=== PATIENT | female | born 1990 | race American Indian/Alaskan Native ===

== ENCOUNTER 2017-09-04 12:18 | Emergency (ER) | payer BC, MEDICAID, OTHER ==
[2017-09-04 12:18] VITALS: BMI 28.1
[2017-09-04 12:26] VITALS: BP 112/76; PULSE 71; RESP 16; TEMP 98; O2SAT 100
--- NOTE | 2017-09-04 12:48 | ED PDOC ---
Lower Extremity Pain/Injury Time Seen by Provider: 09/04/17 12:30 Chief Complaint (Nursing): Lower Extremity Problem/Injury Chief Complaint (Provider): Right foot pain History Per: Patient History/Exam Limitations: no limitations Onset/Duration Of Symptoms: Days (x1 week) Current Symptoms Are (Timing): Still Present Additional Complaint(s): 26 year old female presents to the emergency department with a complaint of a right foot pain x1 week. Patient describes pain like pins and needles and burning sensation to toes. Reports she has had history of severe hughes bite in the pain but denies any recent exposure to severe cold or trauma. States she saw her avionics electronics technician, Dr. Mando Darden MD yesterday, who gave her a referral for a nerve test which she has scheduled for September 10, 2017 but decided to come to the emergency department today because pain was constant while working today. [employer] did not prescribe her any pain medications and reports that Advil and Tylenol are not helping. Past Medical History Reviewed: Historical Data, Nursing Documentation, Vital Signs Vital Signs: Last Vital Signs Temp 98.0 F 09/04/17 12:22 Pulse 71 09/04/17 12:22 Resp 16 09/04/17 12:22 BP 112/76 09/04/17 12:22 Pulse Ox 100 09/04/17 12:22 - Medical History PMH: Migraine - Surgical History Surgical History: No Surg Hx - Family History Family History: States: No Known Family Hx - Living Arrangements Living Arrangements: With Family - Social History Current smoker - smoking cessation education provided: No Alcohol: None Drugs: Denies - Home Medications Home Medications: Ambulatory Orders Medication Instructions Recorded Naproxen 500 mg PO BID PRN #24 tab 05/20/17 Acetaminophen with Codeine 1 tab PO Q6 PRN #20 tab 09/04/17 [Tylenol with Codeine No. 3 300 mg-30 mg] - Allergies Allergies/Adverse Reactions: Allergies Allergy/AdvReac Type Severity Reaction Status Date / Time No Known Allergies Allergy Verified 09/04/17 12:22 Wells Criteria for PE - Wells Criteria for Pulmonary Embolism Clinical Signs and Symptoms of DVT: No P.E is #1 Diagnosis, or Equally Likely: No Heart Rate >100: No Immobilization at least 3 days;Surgery previous 4 weeks: No Previous, objectively diagnosed PE or DVT: No Hemoptysis: No Malignancy w/treatment within 6 months, or palliative: No Total Score: 0 Review of Systems ROS Statement: Except As Marked, All Systems Reviewed And Found Negative (As per HPI, otherwise negative) Constitutional: Negative for: Fever, Chills Musculoskeletal: Positive for: Foot Pain (Right) Physical Exam - Reviewed Nursing Documentation Reviewed: Yes Vital Signs Reviewed: Yes - Physical Exam Appears: Positive for: Well, Non-toxic, No Acute Distress Skin: Positive for: Normal Color. Negative for: Rash Eye Exam: Positive for: Normal appearance Extremity: Positive for: Normal ROM, Tenderness (tenderness to distal aspect of toes to the right foot with no swelling or abnormal discoloration). Negative for: Pedal Edema, Calf Tenderness, Deformity, Swelling Neurologic/Psych: Positive for: Alert, Oriented (x3) - Laboratory Results Urine POC: Negative - ECG O2 Sat by Pulse Oximetry: 100 (RA) Pulse Ox Interpretation: Normal - Other Rad Right foot x-ray X-Ray: Interpreted by Me, Viewed By Me X-Ray Interpretation: no fx, no dis Medical Decision Making Medical Decision Making: Time: 1239 Initial Impression: Right foot pain Initial Plan: --Urine Preg --Right foot x-ray --Podiatry consult ordered --Reevaluation Podiatry resident, Dr. Brian at bedside to see patient. As per Dr. Brian and podiatry attending Dr. Darden, patient can be discharged with a 5 day supply of Tylenol with Codeine. She was instructed to follow-up with pain management as directed. Patient given 1 tablet of T3 in ED. Scribe Attestation: Documented by Imani Castaneda, acting as a scribe for Saira Tejada PA-C. Provider Scribe Attestation: All medical record entries made by the Scribe were at my direction and personally dictated by me. I have reviewed the chart and agree that the record accurately reflects my personal performance of the history, physical exam, medical decision making, and the department course for this patient. I have also personally directed, reviewed, and agree with the discharge instructions and disposition. Disposition - Clinical Impression Clinical Impression: Right foot pain - Patient ED Disposition Is Patient to be Admitted: No Counseled Patient/Family Regarding: Studies Performed, Diagnosis, Need For Followup, Rx Given - Disposition Referrals: Boris,Mando B, DPM [Family Provider] - Disposition: Routine/Home Disposition Time: 13:40 Condition: STABLE Additional Instructions: Take prescription meds as directed as needed for pain. Follow up as directed by Dr. Moncada. Prescriptions: Acetaminophen with Codeine [Tylenol with Codeine No. 3 300 mg-30 mg] 1 tab PO Q6 PRN #20 tab PRN Reason: Pain Instructions: Muscle and Bone Pain (DC), Foot Sprain (DC) Forms: [employer] (Croatian), [facility] ED School/Work Excuse
[2017-09-04] MEDS ORDERED: Acetaminophen-Codeine 300/30 mg Tab PO STA (13:30)
[2017-09-04] MEDS ORDERED: Acetaminophen-Codeine 300/30 mg Tab ONE (13:42)
--- NOTE | 2017-09-04 16:44 | RAD ---
PROCEDURE: Right Foot Radiographs. HISTORY: Pain. No history of recent/ related trauma provided COMPARISON: None. FINDINGS: BONES: Normal. No fracture. JOINTS: Normal. SOFT TISSUES: Normal. OTHER FINDINGS: None. IMPRESSION: Normal right foot radiographs. Concordant results with the preliminary interpretation rendered by the emergency department physician procedure.
--- NOTE | 2017-09-04 16:46 | CP.PCM.CON ---
History of Present Illness - History of Present Illness History of Present Illness: 26F seen in ED complaining of pain to her right foot. Patient states that over the winter she had severe frostbite to the same foot and has been following up with Dr. Moncada in [facility] wound care center. She was in the wound care center yesterday and was told to make an appointment with Dr. Junior for NCV/EMG studies. Patient states that she has an appointment there for next Friday. She came to the ED today because her pain has increased and made it difficulty to walk. She describes the pain as pins and needles that radiates down in to her foot. She denies any new trauma to the area. Denies any further pedal complaints at this time. Denies any recent N/V/F/C/CP/SOB/D/posterior calf pain when squeezed Review of Systems - Review of Systems Review of Systems: ROS as per HPI Past Patient History - Infectious Disease Hx of Infectious Diseases: None - Past Social History Alcohol: None Drugs: Denies - NEUROLOGICAL Hx Migraine: Yes - PSYCHIATRIC Hx Substance Use: No - SURGICAL HISTORY Other/Comment: pylops removed, fibroids removed. - ANESTHESIA Hx Anesthesia: Yes Meds Home Medications: Home Medication List Medication Instructions Recorded Confirmed Type Acetaminophen with Codeine 1 tab PO Q6 PRN #20 tab 09/04/17 Rx [Tylenol with Codeine No. 3 300 mg-30 mg] Allergies/Adverse Reactions: Allergies Allergy/AdvReac Type Severity Reaction Status Date / Time No Known Allergies Allergy Verified 09/04/17 12:22 Physical Exam - Constitutional Appears: Well, Non-toxic, No Acute Distress - Extremities Exam Additional comments: LE focused exam: Vasc: DP/PT pulses fully palpable 2/4 b/l. Skin temperature warm to warm from proximal to distal. CFT < 3 seconds to all digits b/l. No edema noted to right foot Neuro: Hypersensitivity noted to right foot. Epicritic and protective sensation grossly intact Derm: No open lesions, wounds, maceration, xerosis, abnormal pigmentation or abnormal growths noted b/l MSK: No POP noted b/l. No abnormal gross deformities appreciated - Neurological Exam Neurological exam: Alert, Oriented x3 - Psychiatric Exam Psychiatric exam: Normal Affect, Normal Mood Results - Vital Signs Recent Vital Signs: Last Vital Signs Temp 98.0 F 09/04/17 12:22 Pulse 71 09/04/17 12:22 Resp 16 09/04/17 12:22 BP 112/76 09/04/17 12:22 Pulse Ox 100 09/04/17 13:44 Assessment & Plan - Assessment and Plan (Free Text) Assessment: 26F seen in ED for R foot pain most likely secondary to nerve damage caused by frostbite over the winter Plan: Pt seen and evaluated Charts, labs, vitals reviewed Plan discussed with attending Dr. Moncada Afebrile R foot xray reviewed with no abnormal acute findings Pt given Rx for Tylenol with Codeine #3 Patient advised to f/u with Dr. Moncada and Dr. uJnior as scheduled - Date & Time Date: 09/04/17 Time: 16:51
== END 2017-09-04 14:00 | disposition home or self-care (01) ==
LOC: H.ER 12:18
DX: M79.671 Pain in right foot (principal)

== ENCOUNTER 2017-11-10 11:45 | Emergency (ER) | payer BC, MEDICAID, OTHER ==
[2017-11-10 11:45] VITALS: BMI 28.1
[2017-11-10 11:54] VITALS: RESP 16; TEMP 98.5
[2017-11-10 12:27] VITALS: O2SAT 98
[2017-11-10] MEDS ORDERED: Sodium Chloride 0.9% 1,000 ML IV STA (12:31)
[2017-11-10 13:09] LABS: BLOOD UREA NITROGEN 7 mg/dl (7-17); CALCIUM 9.1 mg/dL (8.4-10.2); GFR AFRICAN-AMERICAN > 60; GFR NON-AFRICAN AMERICAN > 60
[2017-11-10 13:37] LABS: BASO % 0.6 % (0.0-2.0); EOS # 0.1 K/uL (0.0-0.7); EOS % 1.2 % (0.0-4.0); LYMPH # 2.2 K/uL (1.0-4.3); LYMPH % 27.7 % (20.0-40.0); MEAN CELL VOLUME 85.8 fl (81.0-99.0); MEAN CORPUSCULAR HEMOGLOBIN 28.4 pg (27.0-31.0); MEAN CORPUSCULAR HGB CONC 33.1 g/dL (33.0-37.0); MEAN PLATELET VOLUME 7.1 fl (7.2-11.7); MONO # 0.8 K/uL (0.0-0.8); MONO % 10.6 % (0.0-10.0); NEUT # 4.8 K/uL (1.8-7.0); NEUT % 59.9 % (50.0-75.0); NRBC % 0.4 % (0.0-0.0); RBC 4.6 Mil/uL (3.80-5.20)
--- NOTE | 2017-11-10 14:06 | ED PDOC ---
HPI: Headache Time Seen by Provider: 11/10/17 12:11 Chief Complaint (Nursing): Headache Chief Complaint (Provider): Headache History Per: Patient History/Exam Limitations: no limitations Onset/Duration Of Symptoms: Days (3) Associated Symptoms: Nausea. denies: Blurred Vision Additional Complaint(s): 27 years old female presents to the ED for evaluation of gradual mild headache and dizziness associated with nausea onset 3 days. Patient states she is concerned mostly of the dizziness and describes it as light headedness. She reports headache is not the worst of her life and is non thunderclap headache. Patient states she has not been drinking much water recently and she is a [employer] worker, who moves around a lot. She states pain is worse when getting up and reports experiencing vaginal bleed once last week. Patient denies any vision changes, fever, numbness or weakness. PMD: Dandre Huber Past Medical History Reviewed: Historical Data, Nursing Documentation, Vital Signs Vital Signs: Last Vital Signs Temp 98.5 F 11/10/17 12:22 Pulse 84 11/10/17 12:22 Resp 16 11/10/17 12:22 BP 113/84 11/10/17 12:22 Pulse Ox 98 11/10/17 12:22 - Medical History PMH: Migraine Denies: Chronic Kidney Disease - Surgical History Surgical History: No Surg Hx - Family History Family History: States: Unknown Family Hx - Social History Current smoker - smoking cessation education provided: No Alcohol: None Drugs: Denies - Immunization History Hx Tetanus Toxoid Vaccination: Yes Hx Influenza Vaccination: Yes Hx Pneumococcal Vaccination: Yes - Home Medications Home Medications: Ambulatory Orders Medication Instructions Recorded Naproxen 500 mg PO BID PRN #24 tab 05/20/17 Acetaminophen with Codeine 1 tab PO Q6 PRN #20 tab 09/04/17 [Tylenol with Codeine No. 3 300 mg-30 mg] - Allergies Allergies/Adverse Reactions: Allergies Allergy/AdvReac Type Severity Reaction Status Date / Time No Known Allergies Allergy Verified 11/10/17 12:28 Review of Systems ROS Statement: Except As Marked, All Systems Reviewed And Found Negative Constitutional: Negative for: Fever Eyes: Negative for: Vision Change Cardiovascular: Positive for: Light Headedness Genitourinary Female: Negative for: Vaginal Bleeding Neurological: Positive for: Headache, Dizziness. Negative for: Weakness, Numbness Physical Exam - Reviewed Nursing Documentation Reviewed: Yes Vital Signs Reviewed: Yes - Physical Exam Appears: Positive for: Non-toxic, No Acute Distress Head Exam: Positive for: ATRAUMATIC, NORMOCEPHALIC Skin: Positive for: Normal Color, Warm, Dry Eye Exam: Positive for: Normal appearance, EOMI, PERRL ENT: Positive for: Normal ENT Inspection Neck: Positive for: Normal, Painless ROM, Supple Cardiovascular/Chest: Positive for: Regular Rate, Rhythm. Negative for: Murmur Respiratory: Positive for: Normal Breath Sounds. Negative for: Respiratory Distress Gastrointestinal/Abdominal: Positive for: Normal Exam, Soft. Negative for: Tenderness Back: Positive for: Normal Inspection. Negative for: L CVA Tenderness, R CVA Tenderness Extremity: Positive for: Normal ROM. Negative for: Tenderness, Swelling Neurologic/Psych: Positive for: Alert, Oriented, Gait (steady). Negative for: Motor/Sensory Deficits - Laboratory Results Result Diagrams: 11/10/17 12:48 11/10/17 12:48 - ECG O2 Sat by Pulse Oximetry: 98 (RA) Pulse Ox Interpretation: Normal - Progress Re-evaluation Time: 14:30 Condition: Re-examined, Improved Medical Decision Making Medical Decision Making: Time: 1231 Initial Impression: headache with dizziness. Differential includes but not limited to nausea due to , orthostatic dizziness, dehydration, migraine headaches. Rule out cardiac arrhythmias. Initial Plan: --EKG --BMP -- Serum --Urine --CBC --NaCl 1,000 mls/hr --Reglan 10 mg IVP --Toradol 15 mg IVP --Labs reviewed and shows . ----- Scribe Attestation: Documented by Toyin Spencer, acting as a scribe for Valencia Antonio MD. Provider Scribe Attestation: All medical record entries made by the Scribe were at my direction and personally dictated by me. I have reviewed the chart and agree that the record accurately reflects my personal performance of the history, physical exam, medical decision making, and the department course for this patient. I have also personally directed, reviewed, and agree with the discharge instructions and disposition. Disposition - Clinical Impression Clinical Impression: Dizziness, , Headache - Patient ED Disposition Is Patient to be Admitted: No Doctor Will See Patient In The: Office Counseled Patient/Family Regarding: Studies Performed, Diagnosis, Need For Followup - Disposition Referrals: Dandre Huber MD [Staff Provider] - Disposition: Routine/Home Disposition Time: 14:49 Condition: GOOD Additional Instructions: Take vitamins. Take tylenol for headachs. Hydrate well. Follow up with your PCP in 4-5 days. Arrange visit with your PCP within 1 week. Instructions: Headache, Adult (DC), Dizziness, Nonvertigo, (DC), Care , - The First Month
[2017-11-10 15:32] VITALS: BP 124/66; PULSE 85
--- NOTE | 2017-11-10 16:03 | CARD ---
APPROVED REPORT EKG Measurement Heart [id number] <Conclusion> Normal sinus rhythm Normal ECG
== END 2017-11-10 15:30 | disposition home or self-care (01) ==
LOC: H.ER 11:45
DX: R42 Dizziness and giddiness (principal); R51 Headache; Z33.1 Pregnant state, incidental
CPT/HCPCS: 80048; 81025; 84702; 85025; 93005; 96360; 99285; J7030